=== PATIENT | male | born 1955 | race Caucasian/White ===

== ENCOUNTER 2017-02-13 20:13 | Inpatient (IN) | payer MEDICARE ==
[~2017-02-13] VITALS: Ht 180.3 cm; Wt 146.5 kg
[2017-02-13] MEDS ORDERED: MULTIVIT INFUSN,ADULT 4,VIT K 10 ML, FOLIC ACID 1 MG, THIAMINE 100 MG in IV NORMAL SALI... IV ONE (20:30)
[2017-02-13] MEDS ORDERED: DEXTROSE 50% 25 GM / 50ML DISP.SYRIN. IV ONE (20:30)
--- NOTE | 2017-02-13 20:31 | PHYS DOC ---
Adult General Chief Complaint Chief Complaint: BLOOD SUGAR PROBLEM HPI HPI This is a 61 yo male who presents after being at a concert with a low blood glucose of 65 despite taking some oral glucose. Pt states he had little to eat or drink today besides 4-5 beers. Pt states he is dizzy and lightheaded. His blood pressure is 85/60 upon arrival but he is fully alert and oriented and able to answer all my questions and follow all my commands. He denies any significant shortness of breath or chest pain. Pt does state that he has some mild abdominal pain that is a chronic thing for him. Review of Systems Review of Systems Constitutional: Denies fever or chills [] Eyes: Denies change in visual acuity, redness, or eye pain [] HENT: Denies nasal congestion or sore throat [] Respiratory: Denies cough or shortness of breath [] Cardiovascular: No additional information not addressed in HPI [] GI: Denies abdominal pain, nausea, vomiting, bloody stools or diarrhea [] : Denies dysuria or hematuria [] Musculoskeletal: Denies back pain or joint pain [] Integument: Denies rash or skin lesions [] Neurologic: Denies headache, focal weakness or sensory changes [] Endocrine: Denies polyuria or polydipsia [] Current Medications Current Medications Current Medications Medications (Trade) Dose Ordered Sig/[facility] Start Time Stop Time Status Last Admin Dose Admin Albuterol/ Ipratropium (Duoneb) 3 ml 1X ONCE 02/13/17 22:30 02/13/17 22:31 DC 02/13/17 22:24 3 ML Dextrose 1,000 ml @ 999 mls/hr 1X ONCE 02/13/17 21:45 02/13/17 22:45 DC 02/13/17 21:45 999 MLS/HR Dextrose (Dextrose 50%-Water Syringe) 25 gm 1X ONCE 02/13/17 20:30 02/13/17 21:36 DC 02/13/17 21:05 25 GM Multivitamins 10 ml/Folic Acid 1 mg/Thiamine HCl 100 mg/Sodium Chloride 1,011.2 ml @ 1,000 mls/ hr 1X ONCE 02/13/17 20:30 02/13/17 21:30 DC 02/13/17 21:06 1,000 MLS/HR Sodium Chloride 1,000 ml @ 1,000 mls/hr 1X ONCE 02/13/17 21:45 02/13/17 22:44 DC 02/13/17 21:15 1,000 MLS/HR Allergies Allergies Allergies Coded Allergies Type Severity Reaction Last Updated Verified azithromycin Allergy Intermediate 02/13/17 Yes meperidine Allergy Intermediate 02/13/17 Yes Physical Exam Physical Exam Constitutional: Well developed, well nourished, no acute distress, non-toxic appearance. [] HENT: Normocephalic, atraumatic, bilateral external ears normal, oropharynx moist, no oral exudates, nose normal. [] Eyes: PERRLA, EOMI, conjunctiva normal, no discharge. [] Neck: Normal range of motion, no tenderness, supple, no stridor. [] Cardiovascular:Heart rate regular rhythm, no murmur [] Lungs & Thorax: Bilateral breath sounds clear to auscultation [] Abdomen: Bowel sounds normal, soft, no tenderness, no masses, no pulsatile masses. [] Skin: Warm, dry, no erythema, no rash. [] Back: No tenderness, no CVA tenderness. [] Extremities: No tenderness, no cyanosis, no clubbing, ROM intact, no edema. [] Neurologic: Alert and oriented X 3, normal motor function, normal sensory function, no focal deficits noted. [] Psychologic: Affect normal, judgement normal, mood normal. [] Current Patient Data Vital Signs Vital Signs Date Time Temp Pulse Resp B/P (MAP) Pulse Ox O2 Delivery O2 Flow Rate FiO2 02/14/17 00:02 115/52 (73) 02/13/17 23:39 64 02/13/17 22:35 98 02/13/17 22:28 Nasal Cannula 2.0 02/13/17 20:13 98.7 22 98.7 Lab Values Laboratory Tests Test 02/13/17 20:45 02/13/17 21:29 02/14/17 00:07 White Blood Count 12.0 x10^3/uL (4.0-11.0) H Red Blood Count 4.17 x10^6/uL (4.30-5.70) L Hemoglobin 10.3 g/dL (13.0-17.5) L Hematocrit 30.8 % (39.0-53.0) L Mean Corpuscular Volume 74 fL (79-100) L Mean Corpuscular Hemoglobin 25 pg (25-35) Mean Corpuscular Hemoglobin Concent 33 g/dL (31-37) Red Cell Distribution Width 18.1 % (11.5-14.5) H Platelet Count 231 x10^3/uL (140-400) Neutrophils (%) (Auto) 76 % (31-73) H Lymphocytes (%) (Auto) 11 % (24-48) L Monocytes (%) (Auto) 12 % (0-9) H Eosinophils (%) (Auto) 0 % (0-3) Basophils (%) (Auto) 1 % (0-3) Neutrophils # (Auto) 9.1 x10^3uL (1.8-7.7) H Lymphocytes # (Auto) 1.3 x10^3/uL (1.0-4.8) Monocytes # (Auto) 1.5 x10^3/uL (0.0-1.1) H Eosinophils # (Auto) 0.0 x10^3/uL (0.0-0.7) Basophils # (Auto) 0.1 x10^3/uL (0.0-0.2) Sodium Level 135 mmol/L (136-145) L Potassium Level 3.3 mmol/L (3.5-5.1) L Chloride Level 97 mmol/L (98-107) L Carbon Dioxide Level 30 mmol/L (21-32) Anion Gap 8 (6-14) Blood Urea Nitrogen 16 mg/dL (8-26) Creatinine 2.2 mg/dL (0.7-1.3) H Estimated GFR (Cockcroft-Gault) 30.6 BUN/Creatinine Ratio 7 (6-20) Glucose Level 55 mg/dL (70-99) L Calcium Level 8.7 mg/dL (8.5-10.1) Total Bilirubin 1.0 mg/dL (0.2-1.0) Aspartate Amino Transferase (AST) 20 U/L (15-37) Alanine Aminotransferase (ALT) 13 U/L (16-63) L Alkaline Phosphatase 81 U/L (46-116) Troponin I Quantitative < 0.017 ng/mL (0.000-0.055) Total Protein 6.6 g/dL (6.4-8.2) Albumin 2.9 g/dL (3.4-5.0) L Albumin/Globulin Ratio 0.8 (1.0-1.7) L Ethyl Alcohol Level < 10 mg/dL (0-10) Glucose (Fingerstick) 147 mg/dL (70-99) H 82 mg/dL (70-99) Laboratory Tests 02/13/17 20:45 Laboratory Tests 02/13/17 20:45 EKG EKG EKG as interpreted by me reveals a sinus rhythm of 66 bpm. There is no acute injury pattern seen. QTC interval is slightly prolonged at 491 ms. Radiology/Procedures Radiology/Procedures [] Course & Med Decision Making Course & Med Decision Making Pertinent Labs and Imaging studies reviewed. (See chart for details) This 61 yo male who is having a hypoglycemic episode and alcohol intoxication is likely moderately dehydrated and will have full laboratory workup and fluid bolus with dextrose infusion and observed in the department for multiple hours for resolution of his hypoglycemia and dehydration type symptoms. Upon my reassessment, after banana bag the patient is resting comfortably. He is requiring supplemental oxygen which he normally uses 2 L at night for his COPD. DuoNeb will be given. Patient will be given a meal and continually observed with another fluid bolus given. Being reassessed multiple times, the patient's blood glucose is still trended down despite dextrose infusion. He'll be admitted for his ongoing hypoglycemia and dehydration with a creatinine of 2.2. While ambulate around the department the patient is also unsteady. I discussed all these findings with the hospitalist, Dr. Zelaya, who agreed to accept for further evaluation and treatment. Dragon Disclaimer Dragon Disclaimer This electronic medical record was generated, in whole or in part, using a voice recognition dictation system. Departure Departure Impression: Primary Impression: Dehydration Additional Impressions: Hypoglycemia Unsteady gait Disposition: ADMITTED INPATIENT Admitting Physician: Shelley Zelaya Condition: STABLE Problem Qualifiers AZUL FENTON DO Feb 13, 2017 20:31
[2017-02-13 21:00] LABS: BASO # 0.1 x10^3/uL (0.0-0.2); BASO % 1 % (0-3); EOS % 0 % (0-3); HEMATOCRIT 30.8 % (39.0-53.0); HEMOGLOBIN 10.3 g/dL (13.0-17.5); LYMPH # 1.3 x10^3/uL (1.0-4.8); LYMPH % 11 % (24-48); MEAN CORPUSCULAR HEMOGLOBIN 25 pg (25-35); MEAN CORPUSCULAR HGB CONC 33 g/dL (31-37); MEAN CORPUSCULAR VOLUME 74 fL (79-100); MONO % 12 % (0-9); NEUT % 76 % (31-73); PLATELET COUNT 231 x10^3/uL (140-400); RED BLOOD COUNT 4.17 x10^6/uL (4.30-5.70); RED CELL DISTRIBUTION WIDTH 18.1 % (11.5-14.5)
[2017-02-13] MEDS ORDERED: IV NORMAL SALINE 1000ML BAG 1,000 ML IV ONE ×2 (21:15→21:45)
[2017-02-13 21:18] LABS: CALCIUM 8.7 mg/dL (8.5-10.1); CREATININE 2.2 mg/dL (0.7-1.3); GFR 30.6; POTASSIUM 3.3 mmol/L (3.5-5.1)
[2017-02-13 21:23] LABS: ALBUMIN 2.9 g/dL (3.4-5.0); ALBUMIN/GLOBULIN RATIO 0.8 (1.0-1.7); TOTAL PROTEIN 6.6 g/dL (6.4-8.2)
[2017-02-13] MEDS ORDERED: IV DEXTROSE 5% 1,000 ML IV ONE (21:45)
[2017-02-13] MEDS ORDERED: IPRATRPIUM/ALBUTEROL 0.5/2.5MG 3 ML NEBU. NEB ONE (22:30)
[2017-02-14] VITALS (7 sets, daily range): BP systolic 85–133; BP diastolic 47–74
[2017-02-14] MEDS ORDERED: ONDANSETRON PF 4 MG/2 ML VIAL. IV PRN (00:30)
[2017-02-14] MEDS ORDERED: ACETAMINOPHEN 325 MG TABLET. PO PRN (00:30)
[2017-02-14] MEDS ORDERED: IV DEXTROSE 5 %-0.45 % NACL 1,000 ML IV ONE (00:30)
--- NOTE | 2017-02-14 07:48 | EKG ---
[facility] [address] [place] [address] Test Date: 2017-02-13 Test Time: 20:36:30 Pat Name: JENNIFER FERRELL Department: Room: 4 Gender: M [employer] Interaction [employer]er: : 1955 Requested By: AZUL FENTON Order Number: [id number] Reading MD: Nico Molina Measurements Intervals Arnold Rate: 66 P: 66 CT: 202 QRS: -32 QRSD: 132 T: 15 QT: 466 QTc: 491 Interpretive Statements SINUS RHYTHM ABNORMAL LEFT AXIS DEVIATION LEFT ANTERIOR FASCICULAR BLOCK RIGHT BUNDLE BRANCH BLOCK BIFASCICULAR BLOCK QRS(T) CONTOUR ABNORMALITY CONSIDER ANTEROLATERAL MYOCARDIAL DAMAGE RI6.01 Unconfirmed report No previous ECG available for comparison Electronically Signed On 02-17-2017 9:48:40 CDT by Nico Molina
[2017-02-14] MEDS: oxyCODONE/APAP 5/325 1 TAB TABLET PO PRN ×3 (14:27→21:59)
--- NOTE | 2017-02-14 18:36 | HP ---
ADMIT DATE: 02/14/2017 CHIEF COMPLAINT: Low blood sugar. HISTORY OF PRESENT ILLNESS: The patient is a pleasant 61-year-old male who was at a rock concert last night. His sugar dropped. He did not eat much. He drank some beers. His sugar was in the 65. He had mental status change, shaking, and nausea. I have discussed the case with the ER physician. We are going to admit him and give him fluids and glucose. PAST MEDICAL HISTORY: Noncompliance, diabetes, hyperlipidemia, hypertension, and obesity. ALLERGIES: AZITHROMYCIN AND MEPERIDINE. FAMILY HISTORY: Hypertension. SOCIAL HISTORY: He does not drink, smoke, or take drugs on a regular basis. MEDICATIONS: Reviewed. Please refer to the MRAD. REVIEW OF SYSTEMS: GENERAL: No history of weight change, weakness, or fevers. SKIN: No bruising, hair changes, or rashes. EYES: No blurred, double, or loss of vision. NOSE AND THROAT: No history of nosebleeds, hoarseness, or sore throat. HEART: No history of palpitations, chest pain, or shortness of breath on exertion. LUNGS: Denies cough, hemoptysis, wheezing, or shortness of breath. GASTROINTESTINAL: Denies changes in appetite, nausea, vomiting, diarrhea, or constipation. GENITOURINARY: No history of frequency, urgency, hesitancy, or nocturia. NEUROLOGIC: He complains of shaking. PSYCHIATRIC: No history of panic, anxiety, or depression. ENDOCRINE: No history of heat or cold intolerance, polyuria, or polydipsia. EXTREMITIES: He complains of right arm swelling where he had an IV placed. It appears to have blown. PHYSICAL EXAMINATION: VITAL SIGNS: Temperature afebrile, pulse 90, respirations 18, and blood pressure 142/91. GENERAL: He is alert, cooperative. He was sleeping, but he is pleasant. HEART: Distant S1, S2. LUNGS: Clear. ABDOMEN: Soft, obese. EXTREMITIES: The right arm does have some swelling from the infiltrated IV. ENDOCRINE: No thyromegaly. LYMPHATICS: No cervical nodes. HEMATOPOIETIC: No bruising. LABORATORY DATA: White count 12, hemoglobin 10, and platelets 231. Glucose is up to 147 to 118. Alcohol level less than 10. ASSESSMENT AND PLAN: Symptomatic hypoglycemia. We will do frequent Accu-Cheks, IV hydration, IV glucose, continue his other home medications, but will hold off on his diabetic medications for now. PT, OT, and frequent labs. MAKAYLA ZHU DO DR: CHAPARRO/vania JOB#: [id number] / [id number]
[2017-02-14] MEDS ORDERED: traMADol 50 MG TABLET PO PRN (21:45)
[2017-02-14] MEDS: LIDOCAINE (700MG/PATCH) PATCH. TD SCH (22:01)
[2017-02-15] MEDS: oxyCODONE/APAP 5/325 1 TAB TABLET PO PRN ×5 (03:06→21:09)
[2017-02-15 04:36] LABS: BASO % 1 % (0-3); EOS % 4 % (0-3); HEMATOCRIT 31.9 % (39.0-53.0); LYMPH # 1.4 x10^3/uL (1.0-4.8); LYMPH % 19 % (24-48); MEAN CORPUSCULAR HEMOGLOBIN 24 pg (25-35); MEAN CORPUSCULAR HGB CONC 31 g/dL (31-37); MEAN CORPUSCULAR VOLUME 77 fL (79-100); MONO % 13 % (0-9); NEUT % 64 % (31-73); PLATELET COUNT 192 x10^3/uL (140-400); RED BLOOD COUNT 4.16 x10^6/uL (4.30-5.70); RED CELL DISTRIBUTION WIDTH 18.3 % (11.5-14.5); WHITE BLOOD COUNT 7.6 x10^3/uL (4.0-11.0)
[2017-02-15 04:53] LABS: CALCIUM 8.5 mg/dL (8.5-10.1); CREATININE 1.5 mg/dL (0.7-1.3); GFR 47.6; POTASSIUM 3.7 mmol/L (3.5-5.1)
[2017-02-15 07:00] VITALS: BP 120/57
[2017-02-15] MEDS: LIDOCAINE (700MG/PATCH) PATCH. TD SCH (08:38)
[2017-02-15 11:00] VITALS: BP 131/60
[2017-02-15] MEDS ORDERED: ATOR20TA58 PO (12:57)
[2017-02-15] MEDS ORDERED: DULO60CA6 PO (12:57)
[2017-02-15] MEDS ORDERED: OMEP40CA5 PO (12:57)
[2017-02-15] MEDS ORDERED: AMLO10TA2 PO (12:57)
[2017-02-15] MEDS ORDERED: FLUT16SP NS (12:57)
[2017-02-15] MEDS ORDERED: FURO20TA3 PO (12:57)
[2017-02-15] MEDS ORDERED: HYDR100T24 PO (12:57)
[2017-02-15] MEDS ORDERED: GABA-587 PO (12:57)
[2017-02-15] MEDS ORDERED: ASPI-482 PO (12:57)
[2017-02-15] MEDS ORDERED: CARV25TA2 PO (12:57)
[2017-02-15] MEDS ORDERED: MONT10TA6 PO (12:57)
[2017-02-15] MEDS ORDERED: POTA20TA82 PO (12:57)
[2017-02-15] MEDS ORDERED: MIRT30TA3 PO (12:57)
[2017-02-15] MEDS ORDERED: SUCR1TAB PO (12:57)
[2017-02-15] MEDS ORDERED: GLIM2TAB2 PO (12:57)
[2017-02-15] MEDS ORDERED: VALS1TAB22 PO (12:57)
[2017-02-15] MEDS ORDERED: TRAM50TA PO (12:57)
[2017-02-15] MEDS ORDERED: CLON0.1T PO (12:57)
--- NOTE | 2017-02-15 13:20 | PDOC ---
PROGRESS NOTES Chief Complaint Chief Complaint Hypoglycemia and back pain with h/o: Noncompliance, diabetes, hyperlipidemia, hypertension, and obesity. History of Present Illness History of Present Illness Pt on edge of bed. Co back pain VSS DW RN Vitals Vitals Vital Signs Date Time Temp Pulse Resp B/P (MAP) Pulse Ox O2 Delivery O2 Flow Rate FiO2 02/15/17 12:44 Room Air 02/15/17 11:00 97.5 64 20 131/60 (83) 94 97.5 02/15/17 03:06 2.0 Physical Exam General: Alert, Oriented X3, Cooperative Heart: Regular rate, Normal S1, Normal S2 Lungs: Clear Abdomen: Normal bowel sounds, Soft Extremities: No clubbing, No cyanosis Skin: No rashes, No breakdown Labs LABS Laboratory Tests Test 02/14/17 16:20 02/14/17 20:26 02/15/17 03:40 02/15/17 07:04 Glucose (Fingerstick) 122 mg/dL (70-99) 153 mg/dL (70-99) 100 mg/dL (70-99) White Blood Count 7.6 x10^3/uL (4.0-11.0) Red Blood Count 4.16 x10^6/uL (4.30-5.70) Hemoglobin 10.0 g/dL (13.0-17.5) Hematocrit 31.9 % (39.0-53.0) Mean Corpuscular Volume 77 fL (79-100) Mean Corpuscular Hemoglobin 24 pg (25-35) Mean Corpuscular Hemoglobin Concent 31 g/dL (31-37) Red Cell Distribution Width 18.3 % (11.5-14.5) Platelet Count 192 x10^3/uL (140-400) Neutrophils (%) (Auto) 64 % (31-73) Lymphocytes (%) (Auto) 19 % (24-48) Monocytes (%) (Auto) 13 % (0-9) Eosinophils (%) (Auto) 4 % (0-3) Basophils (%) (Auto) 1 % (0-3) Neutrophils # (Auto) 4.8 x10^3uL (1.8-7.7) Lymphocytes # (Auto) 1.4 x10^3/uL (1.0-4.8) Monocytes # (Auto) 1.0 x10^3/uL (0.0-1.1) Eosinophils # (Auto) 0.3 x10^3/uL (0.0-0.7) Basophils # (Auto) 0.0 x10^3/uL (0.0-0.2) Sodium Level 142 mmol/L (136-145) Potassium Level 3.7 mmol/L (3.5-5.1) Chloride Level 105 mmol/L (98-107) Carbon Dioxide Level 36 mmol/L (21-32) Anion Gap 1 (6-14) Blood Urea Nitrogen 17 mg/dL (8-26) Creatinine 1.5 mg/dL (0.7-1.3) Estimated GFR (Cockcroft-Gault) 47.6 Glucose Level 98 mg/dL (70-99) Calcium Level 8.5 mg/dL (8.5-10.1) Test 02/15/17 11:36 Glucose (Fingerstick) 160 mg/dL (70-99) Review of Systems Review of Systems co pain co weakness Assessment and Plan Assessmemt and Plan Problems Medical Problems: (1) Dehydration Status: Acute (2) Hypoglycemia Status: Acute (3) Unsteady gait Status: Acute Hypoglycemia and back pain with h/o: Noncompliance, diabetes, hyperlipidemia, hypertension, and obesity. Plan Consult Dr Shamir EISENBERG Labs Home meds Narcotics DC soon? Problems: Comment Review of Relevant I have reviewed the following items olimpia (where applicable) has been applied. Labs Laboratory Tests Test 02/13/17 20:18 02/13/17 20:45 02/13/17 21:29 02/14/17 00:07 Glucose (Fingerstick) 54 mg/dL (70-99) 147 mg/dL (70-99) 82 mg/dL (70-99) White Blood Count 12.0 x10^3/uL (4.0-11.0) Red Blood Count 4.17 x10^6/uL (4.30-5.70) Hemoglobin 10.3 g/dL (13.0-17.5) Hematocrit 30.8 % (39.0-53.0) Mean Corpuscular Volume 74 fL (79-100) Mean Corpuscular Hemoglobin 25 pg (25-35) Mean Corpuscular Hemoglobin Concent 33 g/dL (31-37) Red Cell Distribution Width 18.1 % (11.5-14.5) Platelet Count 231 x10^3/uL (140-400) Neutrophils (%) (Auto) 76 % (31-73) Lymphocytes (%) (Auto) 11 % (24-48) Monocytes (%) (Auto) 12 % (0-9) Eosinophils (%) (Auto) 0 % (0-3) Basophils (%) (Auto) 1 % (0-3) Neutrophils # (Auto) 9.1 x10^3uL (1.8-7.7) Lymphocytes # (Auto) 1.3 x10^3/uL (1.0-4.8) Monocytes # (Auto) 1.5 x10^3/uL (0.0-1.1) Eosinophils # (Auto) 0.0 x10^3/uL (0.0-0.7) Basophils # (Auto) 0.1 x10^3/uL (0.0-0.2) Sodium Level 135 mmol/L (136-145) Potassium Level 3.3 mmol/L (3.5-5.1) Chloride Level 97 mmol/L (98-107) Carbon Dioxide Level 30 mmol/L (21-32) Anion Gap 8 (6-14) Blood Urea Nitrogen 16 mg/dL (8-26) Creatinine 2.2 mg/dL (0.7-1.3) Estimated GFR (Cockcroft-Gault) 30.6 BUN/Creatinine Ratio 7 (6-20) Glucose Level 55 mg/dL (70-99) Calcium Level 8.7 mg/dL (8.5-10.1) Total Bilirubin 1.0 mg/dL (0.2-1.0) Aspartate Amino Transf (AST/SGOT) 20 U/L (15-37) Alanine Aminotransferase (ALT/SGPT) 13 U/L (16-63) Alkaline Phosphatase 81 U/L (46-116) Troponin I Quantitative < 0.017 ng/mL (0.000-0.055) Total Protein 6.6 g/dL (6.4-8.2) Albumin 2.9 g/dL (3.4-5.0) Albumin/Globulin Ratio 0.8 (1.0-1.7) Ethyl Alcohol Level < 10 mg/dL (0-10) Test 6/4/17 07:18 02/14/17 12:00 02/14/17 16:20 02/14/17 20:26 Glucose (Fingerstick) 98 mg/dL (70-99) 118 mg/dL (70-99) 122 mg/dL (70-99) 153 mg/dL (70-99) Test 02/15/17 03:40 02/15/17 07:04 02/15/17 11:36 White Blood Count 7.6 x10^3/uL (4.0-11.0) Red Blood Count 4.16 x10^6/uL (4.30-5.70) Hemoglobin 10.0 g/dL (13.0-17.5) Hematocrit 31.9 % (39.0-53.0) Mean Corpuscular Volume 77 fL (79-100) Mean Corpuscular Hemoglobin 24 pg (25-35) Mean Corpuscular Hemoglobin Concent 31 g/dL (31-37) Red Cell Distribution Width 18.3 % (11.5-14.5) Platelet Count 192 x10^3/uL (140-400) Neutrophils (%) (Auto) 64 % (31-73) Lymphocytes (%) (Auto) 19 % (24-48) Monocytes (%) (Auto) 13 % (0-9) Eosinophils (%) (Auto) 4 % (0-3) Basophils (%) (Auto) 1 % (0-3) Neutrophils # (Auto) 4.8 x10^3uL (1.8-7.7) Lymphocytes # (Auto) 1.4 x10^3/uL (1.0-4.8) Monocytes # (Auto) 1.0 x10^3/uL (0.0-1.1) Eosinophils # (Auto) 0.3 x10^3/uL (0.0-0.7) Basophils # (Auto) 0.0 x10^3/uL (0.0-0.2) Sodium Level 142 mmol/L (136-145) Potassium Level 3.7 mmol/L (3.5-5.1) Chloride Level 105 mmol/L (98-107) Carbon Dioxide Level 36 mmol/L (21-32) Anion Gap 1 (6-14) Blood Urea Nitrogen 17 mg/dL (8-26) Creatinine 1.5 mg/dL (0.7-1.3) Estimated GFR (Cockcroft-Gault) 47.6 Glucose Level 98 mg/dL (70-99) Calcium Level 8.5 mg/dL (8.5-10.1) Glucose (Fingerstick) 100 mg/dL (70-99) 160 mg/dL (70-99) Laboratory Tests Test 02/14/17 16:20 02/14/17 20:26 02/15/17 03:40 02/15/17 07:04 Glucose (Fingerstick) 122 mg/dL (70-99) 153 mg/dL (70-99) 100 mg/dL (70-99) White Blood Count 7.6 x10^3/uL (4.0-11.0) Red Blood Count 4.16 x10^6/uL (4.30-5.70) Hemoglobin 10.0 g/dL (13.0-17.5) Hematocrit 31.9 % (39.0-53.0) Mean Corpuscular Volume 77 fL (79-100) Mean Corpuscular Hemoglobin 24 pg (25-35) Mean Corpuscular Hemoglobin Concent 31 g/dL (31-37) Red Cell Distribution Width 18.3 % (11.5-14.5) Platelet Count 192 x10^3/uL (140-400) Neutrophils (%) (Auto) 64 % (31-73) Lymphocytes (%) (Auto) 19 % (24-48) Monocytes (%) (Auto) 13 % (0-9) Eosinophils (%) (Auto) 4 % (0-3) Basophils (%) (Auto) 1 % (0-3) Neutrophils # (Auto) 4.8 x10^3uL (1.8-7.7) Lymphocytes # (Auto) 1.4 x10^3/uL (1.0-4.8) Monocytes # (Auto) 1.0 x10^3/uL (0.0-1.1) Eosinophils # (Auto) 0.3 x10^3/uL (0.0-0.7) Basophils # (Auto) 0.0 x10^3/uL (0.0-0.2) Sodium Level 142 mmol/L (136-145) Potassium Level 3.7 mmol/L (3.5-5.1) Chloride Level 105 mmol/L (98-107) Carbon Dioxide Level 36 mmol/L (21-32) Anion Gap 1 (6-14) Blood Urea Nitrogen 17 mg/dL (8-26) Creatinine 1.5 mg/dL (0.7-1.3) Estimated GFR (Cockcroft-Gault) 47.6 Glucose Level 98 mg/dL (70-99) Calcium Level 8.5 mg/dL (8.5-10.1) Test 02/15/17 11:36 Glucose (Fingerstick) 160 mg/dL (70-99) Medications Current Medications Multivitamins 10 ml/Folic Acid 1 mg/Thiamine HCl 100 mg/Sodium Chloride 1,011.2 ml @ 1,000 mls/ hr 1X ONCE IV Last administered on 02/13/17 21:06; Start 02/13 at 20:30; Stop 02/13/17 at 21:30; Status DC Dextrose (Dextrose 50%-Water Syringe) 25 gm 1X ONCE IV Last administered on 21:05; Start 02/13/17 at 20:30; Stop 02/13/17 at 21:36; Status DC Sodium Chloride 1,000 ml @ 1,000 mls/hr 1X ONCE IV ; Start 02/13/17 at 21:15; Stop 02/13/17 at 22:14; Status Cancel Dextrose 1,000 ml @ 999 mls/hr 1X ONCE IV Last administered on 02/13/17 21:45 ; Start 02/13/17 at 21:45; Stop 02/13/17 at 22:45; Status DC Sodium Chloride 1,000 ml @ 1,000 mls/hr 1X ONCE IV Last administered on 21:15; Start 02/13/17 at 21:45; Stop 02/13/17 at 22:44; Status DC Albuterol/ Ipratropium (Duoneb) 3 ml 1X ONCE NEB Last administered on 22:24; Start 02/13/17 at 22:30; Stop 02/13/17 at 22:31; Status DC Ondansetron HCl (Zofran) 4 mg PRN Q8HRS PRN IV NAUSEA/VOMITING; Start 02/14/17 at 00:30; Stop 02/15/17 at 00:29; Status DC Acetaminophen (Tylenol) 650 mg PRN Q4HRS PRN PO FEVER; Start 02/14/17 at 00:30; Stop 02/15/17 at 00:29; Status DC Dextrose/Sodium Chloride 1,000 ml @ 125 mls/hr 1X ONCE IV Last administered on 02/14/17 01:24; Start 02/14/17 at 00:30; Stop 02/14/17 at 08:29; Status DC Oxycodone/ Acetaminophen (Percocet 5/325) 1 tab PRN Q4HRS PRN PO PAIN Last administered on 02/14/17 21:59; Start 02/14/17 at 14:30 Tramadol HCl (Ultram) 50 mg PRN Q6HRS PRN PO PAIN Last administered on 10:50; Start 02/14/17 at 21:45 Lidocaine (Lidoderm) 1 patch DAILY TD Last administered on 02/15/17 08:38; Start 02/14/17 at 21:45 Oxycodone/ Acetaminophen (Percocet 5/325) 2 tab PRN Q4HRS PRN PO PAIN Last administered on 02/15/17 12:44; Start 02/14/17 at 21:45 Active Scripts Active Reported Fluticasone Propionate Nasal [place] (Fluticasone Propionate) 16 Gm [place].susp 2 [place] NS DAILY PRN Tramadol Hcl 50 Mg Tablet 50 Mg PO Q6H PRN Cymbalta (Duloxetine Hcl) 60 Mg Capsule.dr 1 Cap PO DAILY Sucralfate 1 Gm Tablet 1 Tab PO TIDWMEALS Furosemide 20 Mg Tablet 20 Mg PO BID Potassium Chloride 20 Meq Tablet.er 20 Meq PO BIDWMEALS Aspir 81 (Aspirin) 81 Mg Tablet.dr 1 Tab PO DAILY Amlodipine Besylate 10 Mg Tablet 10 Mg PO DAILY Hydralazine Hcl 100 Mg Tablet 1 Tab PO TID Singulair Tablet (Montelukast Sodium) 10 Mg Tablet 10 Mg PO HS Atorvastatin Calcium 20 Mg Tablet 20 Mg PO HS Mirtazapine 30 Mg Tablet 1 Tab PO QHS Omeprazole 40 Mg Capsule.dr 1 Cap PO DAILY Clonidine Hcl 0.1 Mg Tablet 0.1 Mg PO BID Diovan Hct 320-25 Mg Tablet (Valsartan/Hydrochlorothiazide) 1 Each Tablet 1 Tab PO DAILY Glimepiride 2 Mg Tablet 1 Tab PO DAILYWBKFT Carvedilol 25 Mg Tablet 1 Tab PO BID Gabapentin 400 Mg Capsule 400 Mg PO QID Vitals/I & O Vital Sign - Last 24 Hours 02/14/17 02/14/17 02/14/17 02/14/17 14:27 15:00 15:46 19:00 Temp 98.0 98.0 Pulse 68 62 Resp 22 18 B/P (MAP) 123/68 (86) 125/50 (75) Pulse Ox 97 97 O2 Delivery Nasal Cannula Room Air Room Air O2 Flow Rate 2.0 2.0 02/14/17 02/14/17 02/14/17 02/14/17 20:30 20:44 21:59 22:32 Temp 97.6 97.6 Pulse 63 Resp 20 20 19 B/P (MAP) 128/65 (86) Pulse Ox 94 O2 Delivery Nasal Cannula Nasal Cannula Nasal Cannula Room Air O2 Flow Rate 2.0 2.0 2.0 02/14/17 02/15/17 02/15/17 02/15/17 22:59 03:06 04:06 07:00 Temp 97.9 97.9 Pulse 59 Resp 20 20 20 20 B/P (MAP) 120/57 (78) Pulse Ox 86 O2 Delivery Room Air Nasal Cannula Room Air O2 Flow Rate 2.0 02/15/17 02/15/17 02/15/17 02/15/17 07:50 08:38 09:45 10:50 O2 Delivery Room Air Room Air Room Air Room Air 02/15/17 02/15/17 02/15/17 11:00 12:00 12:44 Temp 97.5 97.5 Pulse 64 Resp 20 B/P (MAP) 131/60 (83) Pulse Ox 94 O2 Delivery Room Air Room Air Room Air Intake and Output 02/14/17 02/14/17 02/15/17 15:00 23:00 07:00 Intake Total 1200 ml 840 ml 1440 ml Output Total 300 ml 300 ml Balance 900 ml 540 ml 1440 ml MAKAYLA ZHU III DO Feb 15, 2017 13:20
[2017-02-15 15:00] VITALS: BP 131/60
[2017-02-15] MEDS ORDERED: traMADol 50 MG TABLET PO PRN (16:45)
[2017-02-15] MEDS ORDERED: FLUTICASONE 50MCG/NASAL SPRAY 16GM BOTTLE. NS PRN (16:45)
[2017-02-15] MEDS: GABAPENTIN 400 MG CAPSULE. PO SCH ×2 (17:18→21:09)
[2017-02-15] MEDS: ASPIRIN ENTERIC COATED 81 MG TABLET.DR. PO SCH (17:18)
[2017-02-15] MEDS: DULoxetine HCL 30 MG CAPSULE.DR PO SCH (17:18)
[2017-02-15] MEDS: FUROSEMIDE 20 MG TABLET PO SCH (17:18)
[2017-02-15] MEDS: SUCRALFATE 1 GM TABLET. PO SCH (17:18)
[2017-02-15] MEDS: POTASSIUM CHLORIDE 20 MEQ TABLET.ER. PO SCH (17:18)
[2017-02-15] MEDS: LOSARTAN POTASSIUM 50 MG TABLET. PO SCH (17:19)
[2017-02-15] MEDS: CARVEDILOL 12.5 MG TABLET. PO SCH (17:19)
[2017-02-15] MEDS: hydroCHLOROthiazide 25 MG TABLET PO SCH (17:19)
[2017-02-15] MEDS: amLODIPine BESYLATE 10 MG TABLET PO SCH (17:20)
[2017-02-15] MEDS ORDERED: MAGNESIUM HYDROXIDE 2,400 MG/30 ML ORAL.SUSP. PO PRN (17:30)
[2017-02-15] MEDS ORDERED: tiZANidine 4 MG TABLET. PO PRN (17:30)
[2017-02-15] MEDS ORDERED: BISACODYL 5 MG TABLET.DR. PO PRN (17:30)
[2017-02-15 19:00] VITALS: BP 115/60
[2017-02-15] MEDS ORDERED: ATORVASTATIN CALCIUM 20 MG TABLET PO SCH (21:00)
[2017-02-15] MEDS ORDERED: MIRTAZAPINE 15 MG TABLET PO SCH (21:00)
[2017-02-15] MEDS ORDERED: MONTELUKAST SODIUM 10 MG TABLET. PO SCH (21:00)
[2017-02-15] MEDS: cloNIDine HCL 0.1 MG TABLET PO SCH (21:09)
[2017-02-15 23:00] VITALS: BP 93/43
[2017-02-16] MEDS: oxyCODONE/APAP 5/325 1 TAB TABLET PO PRN (02:30)
[2017-02-16 03:00] VITALS: BP 106/55
--- NOTE | 2017-02-16 04:40 | CONS ---
DATE OF CONSULTATION: 02/15/2017 ATTENDING PHYSICIAN: Dr. Zelaya. The patient was seen at the request of Dr. Zelaya for rehab evaluation. HISTORY OF PRESENT ILLNESS: This is a 61-year-old male admitted on 02/14/2017 with hypoglycemia. The patient was at a rap concert the night before his sugar dropped. He did not eat much. He drank some beers. His blood sugars noted 65. He has some mental status change, shaking and nausea, admitted for further evaluation and treatment. PAST MEDICAL HISTORY: Significant for noncompliance, diabetes mellitus, hyperlipidemia, hypertension, obesity, status post cervical spine surgery done about 10 years ago in [facility]. The patient admits some tingling and numbness in his hands and feet. ALLERGIES: THE PATIENT IS KNOWN ALLERGIC TO AZITHROMYCIN AND MEPERIDINE. FAMILY HISTORY: Diabetes mellitus. He lives alone, had ____ for him to manage. He is retired. The patient uses a cane while up walking. He denies any difficulty with his bladder control, but admits some constipation for the last 2 days. He admits lower back pain for the last 2 days without any radiation. He denies any fall. The patient denies any chronic lower back pain or neck pain. PHYSICAL EXAMINATION: Today revealed a middle-aged male. He is alert, oriented to time, place, person and circumstance and follows commands appropriately, moves all 4 extremities voluntarily where he had 4+/5 grade muscle strength, deep tendon reflexes are exaggerated at both knees, absent at both ankles and he had decreased touch and pinprick sensation over a sock and glove distribution. He had painful limited movements of his lumbar spine with moderate degree of lumbar paraspinal muscle spasm and tenderness to palpation over lumbar paraspinal muscles. Straight leg raising test is negative bilaterally. The patient is independent with bed mobility and transfers and up walking at bedside. He has some high level balance problems. ASSESSMENT: A middle-aged male with diabetes mellitus with peripheral neuropathy subacute lumbar sprain without any clinical evidence of ongoing lumbar radiculopathy. 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 He also had edema of his feet and legs, probably from chronic venous insufficiency to rule out associated peripheral vascular disease. The patient also with known hyperlipidemia, hypertension, noncompliance, and obesity. RECOMMENDATIONS: To try physical modality to ask physical therapy to see him home when medically stable with outpatient followup to consider trigger point injections or lumbar corset if the pain persists. To also obtain arterial Doppler studies of his lower extremity to rule out any peripheral vascular disease. Dr. Zelaya, I appreciate asking me to participate in the care of this interesting patient. I will be glad to follow him with you as needed for his rehabilitation. ROLAN PAL MD DR: ARI/vania JOB#: [id number] / [id number]
[2017-02-16 07:00] VITALS: BP 131/62
--- NOTE | 2017-02-16 07:20 | RAD ---
Ankle-brachial indices, 02/16/2017: History: Claudication, leg edema Resting ASHLEY measurements were obtained. The right ASHLEY is 1.35, while the left ASHLEY is 1.27. The ankle pressures are therefore elevated relative to the arm pressures. This is likely due to vascular calcifications.
[2017-02-16] MEDS ORDERED: PANTOPRAZOLE 40 MG TABLET.DR. PO SCH (07:30)
[2017-02-16] MEDS ORDERED: GLIMEPIRIDE 2 MG TABLET. PO SCH (08:00)
[2017-02-16] MEDS: SUCRALFATE 1 GM TABLET. PO SCH ×2 (08:26→12:49)
[2017-02-16] MEDS: DULoxetine HCL 30 MG CAPSULE.DR PO SCH (08:26)
[2017-02-16] MEDS: FUROSEMIDE 20 MG TABLET PO SCH (08:26)
[2017-02-16] MEDS: GABAPENTIN 400 MG CAPSULE. PO SCH ×2 (08:27→12:49)
[2017-02-16] MEDS: amLODIPine BESYLATE 10 MG TABLET PO SCH (08:27)
[2017-02-16] MEDS: POTASSIUM CHLORIDE 20 MEQ TABLET.ER. PO SCH (08:27)
[2017-02-16] MEDS: hydroCHLOROthiazide 25 MG TABLET PO SCH (08:28)
[2017-02-16] MEDS: cloNIDine HCL 0.1 MG TABLET PO SCH (08:28)
[2017-02-16] MEDS: ASPIRIN ENTERIC COATED 81 MG TABLET.DR. PO SCH (08:28)
[2017-02-16] MEDS: LIDOCAINE (700MG/PATCH) PATCH. TD SCH (08:29)
[2017-02-16] MEDS: CARVEDILOL 12.5 MG TABLET. PO SCH (08:29)
[2017-02-16] MEDS: LOSARTAN POTASSIUM 50 MG TABLET. PO SCH (08:29)
[2017-02-16] MEDS ORDERED: NON FORMULARY ITEM (Valsartan/Hydrochlorothiazide (Diovan Hct 320-25 Mg Tablet) 1 TAB) PO SCH (09:00)
--- NOTE | 2017-02-16 09:10 | PDOC ---
PROGRESS NOTES Subjective Subjective He admits continued low back pain. Objective Objective Vital Signs Date Time Temp Pulse Resp B/P (MAP) Pulse Ox O2 Delivery O2 Flow Rate FiO2 02/16/17 08:29 70 131/62 02/16/17 07:00 97.9 18 91 Room Air 97.9 02/16/17 03:30 2.0 Intake and Output 02/16/17 07:00 Intake Total 2360 ml Balance 2360 ml Intake Oral 2360 ml # Voids 6 Physical Exam Physical Exam He continues with tenderness to palpation over lumbar paraspinal muscles and hyperreflexia at both knees and edema of his feet and legs. Assessment Assessment Problems Medical Problems: (1) Dehydration Status: Acute (2) Hypoglycemia Status: Acute (3) Unsteady gait Status: Acute Plan Plan of Care To proceed with injecting his lumbar paraspinal muscle trigger points and obtain x-ray lumbar spine and arterial doppler study of his lower extremities. Comment Review of Relevant I have reviewed the following items olimpia (where applicable) has been applied. Labs Laboratory Tests Test 02/14/17 12:00 02/14/17 16:20 02/14/17 20:26 02/15/17 03:40 Glucose (Fingerstick) 118 mg/dL (70-99) 122 mg/dL (70-99) 153 mg/dL (70-99) White Blood Count 7.6 x10^3/uL (4.0-11.0) Red Blood Count 4.16 x10^6/uL (4.30-5.70) Hemoglobin 10.0 g/dL (13.0-17.5) Hematocrit 31.9 % (39.0-53.0) Mean Corpuscular Volume 77 fL (79-100) Mean Corpuscular Hemoglobin 24 pg (25-35) Mean Corpuscular Hemoglobin Concent 31 g/dL (31-37) Red Cell Distribution Width 18.3 % (11.5-14.5) Platelet Count 192 x10^3/uL (140-400) Neutrophils (%) (Auto) 64 % (31-73) Lymphocytes (%) (Auto) 19 % (24-48) Monocytes (%) (Auto) 13 % (0-9) Eosinophils (%) (Auto) 4 % (0-3) Basophils (%) (Auto) 1 % (0-3) Neutrophils # (Auto) 4.8 x10^3uL (1.8-7.7) Lymphocytes # (Auto) 1.4 x10^3/uL (1.0-4.8) Monocytes # (Auto) 1.0 x10^3/uL (0.0-1.1) Eosinophils # (Auto) 0.3 x10^3/uL (0.0-0.7) Basophils # (Auto) 0.0 x10^3/uL (0.0-0.2) Sodium Level 142 mmol/L (136-145) Potassium Level 3.7 mmol/L (3.5-5.1) Chloride Level 105 mmol/L (98-107) Carbon Dioxide Level 36 mmol/L (21-32) Anion Gap 1 (6-14) Blood Urea Nitrogen 17 mg/dL (8-26) Creatinine 1.5 mg/dL (0.7-1.3) Estimated GFR (Cockcroft-Gault) 47.6 Glucose Level 98 mg/dL (70-99) Calcium Level 8.5 mg/dL (8.5-10.1) Test 02/15/17 07:04 02/15/17 11:36 02/15/17 16:33 02/15/17 21:38 Glucose (Fingerstick) 100 mg/dL (70-99) 160 mg/dL (70-99) 126 mg/dL (70-99) 154 mg/dL (70-99) Test 02/16/17 07:15 Glucose (Fingerstick) 95 mg/dL (70-99) Laboratory Tests Test 02/15/17 11:36 02/15/17 16:33 02/15/17 21:38 02/16/17 07:15 Glucose (Fingerstick) 160 mg/dL (70-99) 126 mg/dL (70-99) 154 mg/dL (70-99) 95 mg/dL (70-99) Medications Current Medications Multivitamins 10 ml/Folic Acid 1 mg/Thiamine HCl 100 mg/Sodium Chloride 1,011.2 ml @ 1,000 mls/ hr 1X ONCE IV Last administered on 02/13/17t 21:06; Start 02/13 at 20:30; Stop 02/13/17 at 21:30; Status DC Dextrose (Dextrose 50%-Water Syringe) 25 gm 1X ONCE IV Last administered on 21:05; Start 02/13/17 at 20:30; Stop 02/13/17 at 21:36; Status DC Sodium Chloride 1,000 ml @ 1,000 mls/hr 1X ONCE IV ; Start 02/13/17 at 21:15; Stop 02/13/17 at 22:14; Status Cancel Dextrose 1,000 ml @ 999 mls/hr 1X ONCE IV Last administered on 02/13/17 21:45 ; Start 02/13/17 at 21:45; Stop 02/13/17 at 22:45; Status DC Sodium Chloride 1,000 ml @ 1,000 mls/hr 1X ONCE IV Last administered on 21:15; Start 02/13/17 at 21:45; Stop 02/13/17 at 22:44; Status DC Albuterol/ Ipratropium (Duoneb) 3 ml 1X ONCE NEB Last administered on 22:24; Start 02/13/17 at 22:30; Stop 02/13/17 at 22:31; Status DC Ondansetron HCl (Zofran) 4 mg PRN Q8HRS PRN IV NAUSEA/VOMITING; Start 02/14/17 at 00:30; Stop 02/15/17 at 00:29; Status DC Acetaminophen (Tylenol) 650 mg PRN Q4HRS PRN PO FEVER; Start 02/14/17 at 00:30; Stop 02/15/17 at 00:29; Status DC Dextrose/Sodium Chloride 1,000 ml @ 125 mls/hr 1X ONCE IV Last administered on 02/14/17 01:24; Start 02/14/17 at 00:30; Stop 02/14/17 at 08:29; Status DC Oxycodone/ Acetaminophen (Percocet 5/325) 1 tab PRN Q4HRS PRN PO MILD-MOD PAIN Last administered on 02/14/17 21:59; Start 02/14/17 at 14:30 Tramadol HCl (Ultram) 50 mg PRN Q6HRS PRN PO PAIN Last administered on 10:50; Start 02/14/17 at 21:45 Lidocaine (Lidoderm) 1 patch DAILY TD Last administered on 02/16/17 08:29; Start 02/14/17 at 21:45 Oxycodone/ Acetaminophen (Percocet 5/325) 2 tab PRN Q4HRS PRN PO SEVERE PAIN Last administered on 02/16/17 02:30; Start 02/14/17 at 21:45 Amlodipine Besylate (Norvasc) 10 mg DAILY PO Last administered on 02/16/17 08: 27; Start 02/15/17 at 17:30 Aspirin (Ecotrin) 81 mg DAILY PO Last administered on 02/16/17 08:28; Start 02/15/17 at 17:30 Atorvastatin Calcium (Lipitor) 20 mg HS PO Last administered on 02/15/17 21:08 ; Start 02/15/17 at 21:00 Clonidine HCl (Catapres) 0.1 mg BID PO Last administered on 02/16/17 08:28; Start 02/15/17 at 21:00 Fluticasone Propionate (Flonase) 2 spray DAILY PRN NS ALLERGIES; Start 02/15/17 at 16:45 Furosemide (Lasix) 20 mg [id number] PO Last administered on 02/16/17 08:26; Start at 17:30 Glimepiride (Amaryl) 2 mg DAILYWBKFT PO ; Start 02/16/17 at 08:00; Stop 02/16/17 at 08:00; Status DC Montelukast Sodium (Singulair) 10 mg HS PO Last administered on 02/15/17 21:10 ; Start 02/15/17 at 21:00 Sucralfate (Carafate) 1 gm TIDWMEALS PO Last administered on 02/16/17 08:26; Start 02/15/17 at 17:00 Tramadol HCl (Ultram) 50 mg PRN Q6HRS PRN PO PAIN; Start 02/15/17 at 16:45; Stop 02/15/17 at 18:14; Status DC Carvedilol (Coreg) 25 mg BIDWMEALS PO Last administered on 02/16/17 08:29; Start 02/15/17 at 17:30 Duloxetine HCl (Cymbalta) 60 mg DAILY PO Last administered on 02/16/17 08:26; Start 02/15/17 at 17:30 Gabapentin (Neurontin) 400 mg QID PO Last administered on 02/16/17 08:27; Start 02/15/17 at 17:30 Hydralazine HCl (Apresoline) 100 mg TID PO Last administered on 02/16/17 08:27 ; Start 02/15/17 at 21:00 Mirtazapine (Remeron) 30 mg QHS PO Last administered on 02/15/17 21:09; Start 02/15/17 at 21:00 Pantoprazole Sodium (Protonix) 40 mg DAILYAC PO Last administered on 02/16/17 08:26; Start 02/16/17 at 07:30 Potassium Chloride (Klor-Con) 20 meq BIDWMEALS PO Last administered on 08:27; Start 02/15/17 at 17:30 Non-Formulary Medication 1 tab DAILY PO ; Start 02/16/17 at 09:00; Status UNV Losartan Potassium (Cozaar) 100 mg DAILY PO Last administered on 02/16/17 08:29 ; Start 02/15/17 at 17:30 Hydrochlorothiazide (Hydrodiuril) 25 mg DAILY PO Last administered on 02/16/17 08:28; Start 02/15/17 at 17:30 Tizanidine HCl (Zanaflex) 4 mg PRN Q8HRS PRN PO MUSCLE SPASMS Last administered on 02/15/17 18:14; Start 02/15/17 at 17:30 Magnesium Hydroxide (Milk Of Magnesia) 2,400 mg PRN DAILY PRN PO CONSTIPATION; Start 02/15/17 at 17:30 Bisacodyl (Dulcolax Tab) 10 mg PRN DAILY PRN PO CONSTIPATION; Start 02/15/17 at 17:30 Methylprednisolone Acetate (DEPO-Medrol 40MG VIAL) 40 mg 1X ONCE IM ; Start 02/16/17 at 09:15; Stop 02/16/17 at 09:16; Status UNV Bupivacaine HCl (Sensorcaine-Mpf 0.25%) 10 ml 1X ONCE IJ ; Start 02/16/17 at 09: 15; Stop 02/16/17 at 09:16; Status UNV Active Scripts Active Reported Fluticasone Propionate Nasal [place] (Fluticasone Propionate) 16 Gm [place].susp 2 [place] NS DAILY PRN Tramadol Hcl 50 Mg Tablet 50 Mg PO Q6H PRN Cymbalta (Duloxetine Hcl) 60 Mg Capsule.dr 1 Cap PO DAILY Sucralfate 1 Gm Tablet 1 Tab PO TIDWMEALS Furosemide 20 Mg Tablet 20 Mg PO BID Potassium Chloride 20 Meq Tablet.er 20 Meq PO BIDWMEALS Aspir 81 (Aspirin) 81 Mg Tablet.dr 1 Tab PO DAILY Amlodipine Besylate 10 Mg Tablet 10 Mg PO DAILY Hydralazine Hcl 100 Mg Tablet 1 Tab PO TID Singulair Tablet (Montelukast Sodium) 10 Mg Tablet 10 Mg PO HS Atorvastatin Calcium 20 Mg Tablet 20 Mg PO HS Mirtazapine 30 Mg Tablet 1 Tab PO QHS Omeprazole 40 Mg Capsule.dr 1 Cap PO DAILY Clonidine Hcl 0.1 Mg Tablet 0.1 Mg PO BID Diovan Hct 320-25 Mg Tablet (Valsartan/Hydrochlorothiazide) 1 Each Tablet 1 Tab PO DAILY Glimepiride 2 Mg Tablet 1 Tab PO DAILYWBKFT Carvedilol 25 Mg Tablet 1 Tab PO BID Gabapentin 400 Mg Capsule 400 Mg PO QID Vitals/I & O Vital Sign - Last 24 Hours 02/15/17 02/15/17 02/15/17 02/15/17 10:50 11:00 12:00 12:44 Temp 97.5 97.5 Pulse 64 Resp 20 B/P (MAP) 131/60 (83) Pulse Ox 94 O2 Delivery Room Air Room Air Room Air Room Air 02/15/17 02/15/17 02/15/17 02/15/17 15:00 17:18 17:19 17:19 Temp 97.5 97.5 Pulse 64 63 63 B/P (MAP) 131/60 (83) 134/65 134/65 Pulse Ox 94 O2 Delivery Room Air Room Air O2 Flow Rate 2.0 02/15/17 02/15/17 02/15/17 02/15/17 17:20 19:00 20:00 21:08 Temp 97.2 97.2 Pulse 63 58 58 Resp 18 B/P (MAP) 134/65 115/60 (78) 115/60 Pulse Ox 100 O2 Delivery Nasal Cannula O2 Flow Rate 2.0 02/15/17 02/15/17 02/15/17 02/16/17 21:09 21:09 23:00 02:30 Temp 97.9 97.9 Pulse 58 56 Resp 18 18 18 B/P (MAP) 115/60 93/43 (60) Pulse Ox 100 94 98 O2 Delivery Nasal Cannula Room Air Nasal Cannula O2 Flow Rate 2.0 2.0 02/16/17 02/16/17 02/16/17 02/16/17 03:00 03:30 07:00 08:27 Temp 97.8 97.9 97.8 97.9 Pulse 55 70 70 Resp 18 18 18 B/P (MAP) 106/55 (72) 131/62 (85) 131/62 Pulse Ox 100 98 91 O2 Delivery Nasal Cannula Room Air O2 Flow Rate 2.0 02/16/17 02/16/17 02/16/17 02/16/17 08:27 08:28 08:29 08:29 Pulse 70 70 70 70 B/P (MAP) 131/62 131/62 131/62 131/62 Intake and Output 02/15/17 02/15/17 02/16/17 15:00 23:00 07:00 Intake Total 890 ml 480 ml 990 ml Balance 890 ml 480 ml 990 ml ROLAN PAL MD Feb 16, 2017 09:10
[2017-02-16] MEDS ORDERED: methylPREDNISolone ACETATE 40 MG/ML VIAL. IM ONE ×2 (09:15)
[2017-02-16] MEDS ORDERED: BUPIVACAINE MPF 0.25% 10 ML VIAL. IJ ONE ×2 (09:15)
--- NOTE | 2017-02-16 10:15 | PDOC4 ---
PROCEDURE Procedure At his request,I have injected painful trigger points over right lumbar paraspinal muscles with marcaine and depomedrol solution under aseptic skin technique and he tolerated the procedure satisfactorily without any side effects. ROLAN PAL MD Feb 16, 2017 10:14
--- NOTE | 2017-02-16 11:29 | RAD ---
Indication pain. Claudication. Grayscale color Doppler and spectral imaging was performed. Examination was targeted to the major arteries of the lower extremities. On the right there is a normal triphasic waveform associated with the common femoral artery. A monophasic waveform is seen in the deep femoral. The superficial femoral artery in its proximal portion has a normal triphasic waveform. This transitions to a biphasic waveform distally in the vessel indicative of moderate disease in the midportion of the superficial femoral artery. The popliteal artery has a biphasic to triphasic waveform. The posterior tibial artery has a monophasic waveform. The peroneal is monophasic. The anterior tibial artery is not seen. The dorsal pedal artery at the ankle has a monophasic waveform. On the left there is a triphasic waveform associated with the common femoral artery with a monophasic waveform in the deep femoral. Triphasic waveform is seen proximally in the superficial femoral artery. This transitions to a biphasic waveform similar to the contralateral side in the midportion of the SFA. The popliteal waveform is essentially biphasic. The posterior tibial artery has a monophasic waveform. The anterior tibial is not seen proximally but has a monophasic waveform distally. The peroneal artery is also monophasic. The dorsal pedal artery is monophasic. 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 Superimposed, at least moderate stenosis, is seen associated with the calf vessels bilaterally.
--- NOTE | 2017-02-16 11:50 | RAD ---
Lumbar spine, 3 views, 02/16/2017: History: Low back pain The lumbar vertebral heights are well-maintained. The intervertebral disc spaces are well preserved. There are mild to moderate scattered marginal spurs. Aortic calcific plaquing is present. Radiopacities related to a surgical mesh are projected over the lower abdomen and upper pelvis. IMPRESSION: 1. Moderate marginal spurring. 2. No acute abnormality is detected.
[2017-02-16 14:38] VITALS: BP 124/63
--- NOTE | 2017-02-16 23:34 | DS ---
DATE OF DISCHARGE: 02/16/2017 ADMISSION DIAGNOSES: Hypoglycemia and alcohol use. DISCHARGE DIAGNOSES: Resolving hypoglycemia, diabetes and alcohol use. HOSPITAL COURSE: The patient is a pleasant 61-year-old male who was at a [employer] concert. He developed hypoglycemia, he was admitted. We gave him IV glucose, fluids, did some physical therapy and occupational therapy. He also has some back pain. Consulted with ____. ____ gave him an injection in his back. Basically, he is back to his baseline. I did examine him this morning. PHYSICAL EXAMINATION: HEART: Heart sounds were normal. LUNGS: Clear. ABDOMEN: Obese. EXTREMITIES: No edema. SKIN: No rashes. The plan is to discharge the patient home. DISPOSITION: Home. ACTIVITY: As tolerated. DIET: Low sodium. MEDICATIONS: Please see the MRAD. TOTAL TIME: 33 minutes. MAKAYLA ZHU DO DR: CHAPARRO/vania JOB#: [id number] / [id number]
== END 2017-02-16 15:30 | disposition home or self-care (01) | DRG 551 ==
LOC: ER 20:13 → 5 SOUTH 02-14 00:10
PROVIDERS: ADMIT Internal Medicine; ATTEND Internal Medicine
PROC: 3E0233Z Introduction of Anti-inflammatory into Muscle, Percutaneous Approach (ICD-10-PCS; principal; 2017-02-16)
PROC: 3E023BZ Introduction of Anesthetic Agent into Muscle, Percutaneous Approach (ICD-10-PCS; 2017-02-16)
DX: S33.5XXA Sprain of ligaments of lumbar spine, initial encounter (principal); N17.0 Acute kidney failure with tubular necrosis; E43 Unspecified severe protein-calorie malnutrition; Z68.42 Body mass index [BMI] 45.0-49.9, adult; E11.649 Type 2 diabetes mellitus with hypoglycemia without coma; E11.42 Type 2 diabetes mellitus with diabetic polyneuropathy; E78.5 Hyperlipidemia, unspecified; Z60.2 Problems related to living alone; E86.0 Dehydration; I87.2 Venous insufficiency (chronic) (peripheral); E66.9 Obesity, unspecified; I10 Essential (primary) hypertension; Z82.49 Family history of ischemic heart disease and other diseases of the circulatory system; Z83.3 Family history of diabetes mellitus; Z91.19 Patient's noncompliance with other medical treatment and regimen; Z88.1 Allergy status to other antibiotic agents; Z88.8 Allergy status to other drugs, medicaments and biological substances; Z79.899 Other long term (current) drug therapy; Z79.1 Long term (current) use of non-steroidal anti-inflammatories (NSAID)
CPT/HCPCS: 36415; 72100; 80048; 80053; 82962; 84484; 85027; 93005; 93922; 93925; 94640; 96365; 96366; G0480; J1030; J3490; J7030; J7042; J7620; 99285-25